=== PATIENT | female | born 1995 | race Caucasian/White ===

== ENCOUNTER 2016-05-03 15:46 | Emergency (ER) | payer BC, OTHER ==
[2016-05-03 15:50] VITALS: BP 127/73; PULSE 86; TEMP 98; BMI 20.9
--- NOTE | 2016-05-03 16:12 | PDOC ---
History of Present Illness - General Chief Complaint: Rash Stated Complaint: shingles Time Seen by Provider: 05/03/16 15:54 - History of Present Illness Initial Comments: 05/03/16 16:05 CHIEF COMPLAINT: shingles rash HISTORY OF PRESENT ILLNESS: 20 yo F with hx of shingles presents to ED with "shingles rash" to R abdomen. Patient reports having the same type of rash last time and was treated with Valacyclovir. She states that the rash is starting to be itchy and painful. She reports currently being but is getting a termination in 4 days. She denies fever, chills, nausea, vomiting, diarrhea, or rash to any other part of her body. PAST MEDICAL HISTORY: as per HPI FAMILY HISTORY: Denies SOCIAL HISTORY:Denies tobacco, alcohol, illicit drug use. SURGICAL HISTORY: Denies ALLERGIES: No known drug allergies REVIEW OF SYSTEMS General/Constitutional: Denies fever or chills. Denies weakness, weight change. HEENT: Denies change in vision. Cardiovascular: Denies chest pain or shortness of breath. Respiratory: Denies cough, wheezing, or hemoptysis. Gastrointestinal: Denies nausea, vomiting, diarrhea or constipation. Denies rectal bleeding. Genitourinary: Denies dysuria, frequency, or change in urination. Skin and breasts: "I have a shingles rash." Denies rash or easy bruising. PHYSICAL EXAM General Appearance: Well-appearing, appropriately dressed. Respiratory/Chest: Lungs CTAB. Cardiovascular: RRR. S1, S2. Gastrointestinal/Abdominal: Normal bowel sounds. Abdomen soft, non-distended. No tenderness or rebound tenderness. No organomegaly, pulsatile mass, guarding , hernia, hepatomegaly, splenomegaly. Lymphatic: No adenopathy, tenderness. Integumentary: 4 cm x 4 cm erythematous papular rash to R abdomen. Appropriate color, dry, warm. No cyanosis, erythema, jaundice or rash Neurologic: telecom network manager II-XII intact. Fully oriented, alert. Appropriate mood/affect. Motor strength 5/5. No appreciable EOM palsy, facial droop or sensory deficit. Past History - Past Medical History Allergies/Adverse Reactions: Allergies Allergy/AdvReac Type Severity Reaction Status Date / Time No Known Allergies Allergy Verified 05/03/16 15:50 Home Medications: Ambulatory Orders Valacyclovir HCl [Valtrex] 1,000 mg PO TID #21 tablet 05/03/16 Other medical history: shingles - Immunization History Immunization Up to Date: Yes - Psycho/Social/Smoking Cessation Hx Anxiety: No Suicidal Ideation: No Smoking History: Never smoked Information on smoking cessation initiated: No Hx Alcohol Use: No Drug/Substance Use Hx: No Substance Use Type: None *Physical Exam - Vital Signs Last Vital Signs Temp Pulse Resp BP Pulse Ox 98 F 86 18 127/73 100 05/03/16 15:48 05/03/16 15:48 05/03/16 15:48 05/03/16 15:48 05/03/16 15:48 Medical Decision Making - Medical Decision Making 05/03/16 16:09 20 yo F with herpes zoster rash. -Valacyclovir 1g TID x 7 days Rx sent to pharm. Advised patient to take medication as prescribed and f/u with PMD. Advised patient of signs and symptoms for return to ED; patient verbalized understanding and agrees to plan. *DC/Admit/Observation/Transfer Diagnosis at time of Disposition: Shingles Qualifiers: Herpes zoster complications: without complications Qualified Code(s): B02.9 - Zoster without complications - Discharge Dispostion Disposition: HOME Condition at time of disposition: Stable - Prescriptions Prescriptions: Valacyclovir HCl [Valtrex] 1,000 mg PO TID #21 tablet - Referrals Referrals: Rani Martinez MD [Staff Physician] - - Patient Instructions Printed Discharge Instructions: DI for Shingles Additional Instructions: Please take medication as prescribed. Rest, keep area of rash cool and dry. Avoid strenuous activity or hot /humid environments Avoid hot showers or use no abrasive soaps You may use creams such as Eucerin or Cetaphil to keep skin moist, and use Aveeno, calamine lotion, [id number] hydrocortisone creams as needed for symptoms. Please follow up with your primary care doctor next week if symptoms do not resolve. Follow up with a client operations manager for further evaluation when possible.
== END 2016-05-03 17:02 | disposition home or self-care (01) ==
LOC: JERFT 15:46
DX: B02.9 Zoster without complications (principal)
CPT/HCPCS: 99281-25

== ENCOUNTER 2016-12-08 10:29 | Emergency (ER) | payer BC, OTHER ==
[2016-12-08 10:34] VITALS: BP 121/69; PULSE 84; TEMP 98; BMI 20.9
[2016-12-08] MEDS ORDERED: DEXAMETHASONE SOD PHOSPHATE 10 MG/1 ML VIAL IM ONE (10:56)
[2016-12-08] MEDS ORDERED: DEXAMETHASONE SOD PHOSPHATE 10 MG/1 ML VIAL ONE (10:57)
--- NOTE | 2016-12-08 12:35 | PDOC ---
History of Present Illness - General Chief Complaint: Rash Stated Complaint: RASH Time Seen by Provider: 12/08/16 10:48 History Source: Patient Exam Limitations: No Limitations - History of Present Illness Initial Comments: 12/08/16 10:53 Onset of very itchy rash one week ago. States started on her hips, resolves and then spreads to back. States is very difficult time sleeping secondary to the itchiness. Denies any recent exposure to other people with rashes, no new changes to detergents, soaps, lotions or any other environmental changes. Has no animals or any known infestations at home. No one else at home has rash. Has used hydrocortisone cream with minimal resolved 12/08/16 12:35 Timing/Duration: reports: changing over time, getting worse Severity: Yes: mild, moderate Location: reports: torso (only on back) Modifying Factors: improves with: scratching Associated Symptoms: reports: denies symptoms Past History - Travel Traveled outside of the country in the last 30 days: No Close contact w/someone who was outside of country & ill: No - Past Medical History Allergies/Adverse Reactions: Allergies Allergy/AdvReac Type Severity Reaction Status Date / Time No Known Allergies Allergy Verified 12/08/16 10:34 Home Medications: Ambulatory Orders NK [No Known Home Medication] 12/08/16 - Immunization History Immunization Up to Date: Yes - Psycho/Social/Smoking Cessation Hx Anxiety: No Suicidal Ideation: No Smoking History: Never smoked Information on smoking cessation initiated: No Hx Alcohol Use: No Drug/Substance Use Hx: No Substance Use Type: None Review of Systems - Review of Systems Able to Perform ROS?: Yes Is the patient limited Kyrgyz proficient: Yes Constitutional: Yes: See HPI. No: Symptoms Reported, Fever, Malaise HEENTM: Yes: See HPI. No: Symptoms Reported, Nose Congestion, Throat Swelling, Difficulty Swallowing Respiratory: Yes: See HPI. No: Symptoms reported, Cough, Wheezing Integumentary: Yes: Symptoms Reported, See HPI, Pruritus, Rash Neurological: No: Symptoms reported All Other Systems: Reviewed and Negative *Physical Exam - Vital Signs Last Vital Signs Temp Pulse Resp BP Pulse Ox 98 F 84 18 121/69 100 12/08/16 10:31 12/08/16 10:31 12/08/16 10:31 12/08/16 10:31 12/08/16 10:31 - Physical Exam General Appearance: Yes: Nourished, Appropriately Dressed, Mild Distress HEENT: positive: JANET, Normal ENT Inspection (no swelling, airway patent), TMs Normal, Pharynx Normal Neck: positive: Supple. negative: Tender, Lymphadenopathy (R), Lymphadenopathy (L) Respiratory/Chest: positive: Lungs Clear, Normal Breath Sounds Extremity: positive: Normal Capillary Refill, Normal Inspection Integumentary: positive: Normal Color, Dry, Rash (faint maculopapular discrete lesions on back with excoriation from scratching. No pattern, no grouping and no vesicular appearance. Only noted on back.) Neurologic: positive: line runner II-XII NML intact, Fully Oriented, Alert, Normal Mood/ Affect, Normal Response, Motor Strength 08/01 Progress Note - Progress Note Progress Note: Dermatitis, will treat with antihistamines and have follow-up with embossing machine operator as needed *DC/Admit/Observation/Transfer Diagnosis at time of Disposition: Rash of back - Discharge Dispostion Disposition: HOME Condition at time of disposition: Stable Admit: No - Referrals Referrals: Bhumi Georges MD [Primary Care Provider] - Juan Flores [Non Staff, Medical] - - Patient Instructions Printed Discharge Instructions: DI for Rash Additional Instructions: Rest, keep cool and dry- avoid strenuous activity or hot /humid environments Less hot showers, no abrasive soaps May use heavy creams like Eucerin or Cetaphil to keep skin moist May apply Aveeno, calamine lotion, fexj-pyx-ercedst hydrocortisone creams as needed for symptoms May use Benadryl at night for antihistamine, Zyrtec/ Sara or Claritin for daytime antihistamine use to help with itching May use oldw-xms-icafgtm hydrocortisone cream on all areas except face Try to identify cause for rash and avoid exposures Followup with PMD in one week if no resolution Make appointment with embossing machine operator for evaluation when possible
== END 2016-12-08 11:13 | disposition home or self-care (01) ==
LOC: JERFT 10:29
PROC: 3E0233Z Introduction of Anti-inflammatory into Muscle, Percutaneous Approach (ICD-10-PCS; principal; 2016-12-08)
DX: R21 Rash and other nonspecific skin eruption (principal)
CPT/HCPCS: 96372; 99281-25

== ENCOUNTER 2017-08-03 19:40 | Emergency (ER) | payer OTHER ==
[2017-08-03 19:55] VITALS: BP 143/81; PULSE 98; TEMP 98.4; BMI 21.4
--- NOTE | 2017-08-03 19:55 | PDOC ---
Rapid Medical Evaluation Time Seen by Provider: 08/03/17 19:52 Medical Evaluation: Allergies Allergy/AdvReac Type Severity Reaction Status Date / Time No Known Allergies Allergy Verified 12/08/16 10:34 I have performed a brief in-person evaluation of this patient. The patient presents with a chief complaint of: right ear pain, nasal congestion, PETERS, sore throat since this morning. no fever. has not taken any OTC meds Pertinent physical exam findings: patient appears well. no tonsilar swelling or exudate I have ordered the following: hcg The patient will proceed to the ED for further evaluation.
--- NOTE | 2017-08-03 21:31 | PDOC ---
History of Present Illness - General Chief Complaint: Cold Symptoms Stated Complaint: COLD SYMTOMS Time Seen by Provider: 08/03/17 19:52 - History of Present Illness Initial Comments: 21-year-old female presents for evaluation of sinus congestion and right ear pain 3 days. She denies fever chills or night sweats nose nausea vomiting or diarrhea 08/03/17 21:26 Past History - Past Medical History Allergies/Adverse Reactions: Allergies Allergy/AdvReac Type Severity Reaction Status Date / Time No Known Allergies Allergy Verified 08/03/17 19:53 Home Medications: Ambulatory Orders Cetirizine HCl/Pseudoephedrine [Zyrtec-D Tablet] 1 each PO DAILY 30 Days #30 tab.er.12h 08/03/17 COPD: No - Immunization History Immunization Up to Date: Yes - Suicide/Smoking/Psychosocial Hx Smoking History: Never smoked Hx Alcohol Use: No Drug/Substance Use Hx: No Substance Use Type: None Review of Systems - Review of Systems Able to Perform ROS?: Yes Is the patient limited Czech proficient: No Constitutional: Yes: See HPI, Malaise. No: Chills, Diaphoresis, Fever, Night Sweats HEENTM: Yes: Ear Pain, Nose Congestion. No: Eye Pain, Ear Discharge, Nose Pain , Nose Bleeding, Hearing Loss, Throat Pain, Throat Swelling, Mouth Pain Respiratory: No: Cough, Shortness of Breath, SOB at Rest, Stridor, Wheezing Cardiac (ROS): No: Chest Pain ABD/GI: No: Constipated, Diarrhea, Nausea, Vomiting All Other Systems: Reviewed and Negative *Physical Exam - Vital Signs Last Vital Signs Temp Pulse Resp BP Pulse Ox 98.4 F 98 H 18 143/81 98 08/03/17 19:53 08/03/17 19:53 08/03/17 19:53 08/03/17 19:53 08/03/17 19:53 - Physical Exam Comments: 08/03/17 21:27 General Appearance: Well-developed, well-nourished A&O 3 NAD Head: NC/AT Ears: External auditory canals are normal and clear; tympanic membranes are normal; hearing is grossly intact Nose: Normal no discharge Throat and Oral cavity: Pharynx is clear without inflammation swelling exudate no lesions teeth and gingiva are normal Neck: Supple nontender without lymphadenopathy masses or thyromegaly Cardiac: S1 and S2 without murmurs no peripheral edema cyanosis or pallor; extremities are warm and well-perfused; capillary refill is less than 2 seconds without carotid bruits Lungs: CTA and Percussion no rales or rhonchi or wheezing breath sounds are full bilaterally Abdomen: Positive bowel sounds; soft nondistended, nontender, no guarding or rebound tenderness; no masses Musculoskeletal; Adequately aligned spine range of motion intact to spine and extremities Neurologic: Cranial nerves II-XII are grossly intact strength and sensation are symmetric and intact cerebellar testing is negative Skin: Normal color and temperature normal texture turgor no lesions or eruptions *DC/Admit/Observation/Transfer Diagnosis at time of Disposition: Seasonal allergic reaction - Discharge Dispostion Condition at time of disposition: Stable Admit: No - Referrals Referrals: Stella Jade MD [Primary Care Provider] - - Patient Instructions Printed Discharge Instructions: Allergic Rhinitis, Allergies, Respiratory ( Alternative Therapy) - Post Discharge Activity Forms/Work/School Notes: Back to Work
== END 2017-08-03 21:36 | disposition home or self-care (01) ==
LOC: JERFT 19:40
DX: J30.2 Other seasonal allergic rhinitis (principal)
CPT/HCPCS: 84703; 99281-25

== ENCOUNTER 2018-04-05 15:14 | Emergency (ER) | payer BC, OTHER ==
[2018-04-05] MEDS ORDERED: ACETAMINOPHEN 500 MG TABLET (FP) PO ONE (15:26)
--- NOTE | 2018-04-05 15:26 | PDOC ---
Rapid Medical Evaluation Time Seen by Provider: 04/05/18 15:24 Medical Evaluation: Allergies Allergy/AdvReac Type Severity Reaction Status Date / Time No Known Allergies Allergy Verified 08/03/17 19:53 04/05/18 15:25 I have done a brief in-person assessment of this patient. The patient presents with a chief complaint of headache x 2 days. Patient reports frontal headache x 2 days. Denies dizziness, blurred vision, or nausea Pertinent physical exam findings Nad even and unlabored breathing neuro: moving all limbs, a+ o x 3 I have ordered the following: urine preg, analgesia The patient will proceed to the Ed for further evaluation.
[2018-04-05 15:30] VITALS: BP 124/78; PULSE 74; TEMP 97.8; BMI 24.2
[2018-04-05] MEDS ORDERED: ACETAMINOPHEN 500 MG TABLET (FP) ONE (15:51)
--- NOTE | 2018-04-05 16:07 | PDOC ---
History of Present Illness - General Chief Complaint: Migraine Headache Stated Complaint: HEADACHE Time Seen by Provider: 04/05/18 15:24 History Source: Patient Exam Limitations: Clinical Condition - History of Present Illness Initial Comments: 04/05/18 16:08 Patient with history of migraines present with complaint of three-day history of nasal congestion and frontal headache which has not been improving with Tylenol. Patient denies dizziness, blurry vision, change in vision. Patient denies head trauma or injury. Patient denies nausea or vomiting or fever. Patient denies any other symptoms. Timing/Duration: reports: episodic (for 3 days) Severity: Yes: mild Associated Symptoms: reports: denies symptoms. denies: confusion, fatigue, insomnia, loss of consciousness, nausea/vomiting, ringing in ears, sleepy, slurred speech, vision changes, weakness Past History - Past Medical History Allergies/Adverse Reactions: Allergies Allergy/AdvReac Type Severity Reaction Status Date / Time No Known Allergies Allergy Verified 04/05/18 15:37 Home Medications: Ambulatory Orders Butalb/Acetaminophen/Caffeine [Fioricet 50-300-40 mg Capsule] 1 each PO Q6H PRN #20 capsule 04/05/18 Ipratropium [place] 2 spray NS BID PRN #1 spray 04/05/18 Loratadine 10 mg PO DAILY #10 capsule 04/05/18 Anemia: No Asthma: No Cardiac Disorders: No CVA: No COPD: No HTN: No Hypercholesterolemia: No Seizures: No - Immunization History Immunization Up to Date: Yes - Suicide/Smoking/Psychosocial Hx Smoking History: Never smoked Have you smoked in the past 12 months: No Information on smoking cessation initiated: No Hx Alcohol Use: No Drug/Substance Use Hx: No Substance Use Type: None Neuro Specific PMHX - Complaint Specific PMHX Glaucoma: No Herniated Disk: No Laminectomy: No Migraine: Yes Neuropathy: No TIA: No Review of Systems - Review of Systems Able to Perform ROS?: Yes Is the patient limited Iraqi proficient: No Constitutional: No: Chills, Fever, Malaise, Weakness HEENTM: Yes: Symptoms Reported, See HPI, Nose Congestion. No: Eye Pain, Blurred Vision, Tearing, Recent change in vision, Double Vision, Cataracts, Ear Pain, Ocular Prothesis, Ear Discharge, Nose Pain, Tinnitus, Nose Bleeding, Hearing Loss, Throat Pain, Throat Swelling, Mouth Pain, Dental Problems, Difficulty Swallowing, Mouth Swelling, Other Respiratory: No: Symptoms reported, See HPI, Cough, Orthopnea, Shortness of Breath, SOB with Exertion, SOB at Rest, Stridor, Wheezing, Productive cough, Hemoptysis, Other Cardiac (ROS): No: Symptoms Reported, See HPI, Chest Pain, Edema, Irregular Heart Rate, Lightheadedness, Palpitations, Syncope, Chest Tightness, Other ABD/GI: No: Nausea, Vomiting Neurological: Yes: Headache (intermittent frontal of head). No: Numbness, Paresthesia, Pre-Existing Deficit, Seizure, Tingling, Tremors, Unsteady Gait, Ataxia, Dizziness All Other Systems: Reviewed and Negative *Physical Exam - Vital Signs Last Vital Signs Temp Pulse Resp BP Pulse Ox 97.8 F 74 20 124/78 100 04/05/18 15:26 04/05/18 15:26 04/05/18 15:26 04/05/18 15:26 04/05/18 15:26 - Physical Exam Comments: 04/05/18 16:10 GENERAL: Well developed, well nourished. Awake and alert. No acute distress. HEENT: mild b/l nasal congestion.Normocephalic, atraumatic. PERRLA, EOMI. No conjunctival pallor. Sclera are non-icteric. Moist mucous membranes. Oropharynx is clear. NECK: Supple. Full ROM. No JVD. Carotid pulses 2+ and symmetric, without bruits. No thyromegaly. No lymphadenopathy. CARDIOVASCULAR: Regular rate and rhythm. No murmurs, rubs, or gallops. Distal pulses are 2+ and symmetric. PULMONARY: No evidence of respiratory distress. Lungs clear to auscultation bilaterally. No wheezing, rales or rhonchi. ABDOMINAL: Soft. Non-tender. Non-distended. No rebound or guarding. No organomegaly. Normoactive bowel sounds. MUSCULOSKELETAL Normal range of motion at all joints. No bony deformities or tenderness. No CVA tenderness. EXTREMITIES: No cyanosis. No clubbing. No edema. No calf tenderness. SKIN: Warm and dry. Normal capillary refill. No rashes. No jaundice. NEUROLOGICAL: Alert, awake, appropriate. Cranial nerves 2-12 intact. normal tandem walking. Normal speech. Toes are down-going bilaterally. Gait is normal without ataxia. PSYCHIATRIC: Cooperative. Good eye contact. Appropriate mood and affect. General Appearance: Yes: Nourished, Appropriately Dressed. No: Apparent Distress Moderate Sedation - Procedure Monitoring Vital Signs: Procedure Monitoring Vital Signs Temperature 97.8 F 04/05/18 15:26 Pulse Rate 74 04/05/18 15:26 Respiratory Rate 20 04/05/18 15:26 Blood Pressure 124/78 04/05/18 15:26 O2 Sat by Pulse Oximetry (%) 100 04/05/18 15:26 ED Treatment Course - Medications Given in the ED: ED Medications Discontinued Medications Generic Name Dose Route Start Last Admin Trade Name Freq PRN Reason Stop Dose Admin Acetaminophen 1,000 mg 04/05/18 15:26 04/05/18 15:53 Tylenol - PO 04/05/18 15:27 1,000 mg ONCE ONE Administration Medical Decision Making - Medical Decision Making 04/05/18 16:10 Patient with history of migraines present with complaint of three-day history of nasal congestion and frontal headache which has not been improving with Tylenol Clinical exam unremarkable except nasal congestion. Normal neuro exam. Symptoms likely headache from sinusitis. Patient is stable for discharge on outpatient treatment for sinusitis with neurology follow-up as needed for headache and ENT follow-up for sinusitis as needed. *DC/Admit/Observation/Transfer Diagnosis at time of Disposition: Headache Qualifiers: Headache type: unspecified Headache chronicity pattern: chronic headache Intractability: not intractable Qualified Code(s): R51 - Headache Sinusitis Qualifiers: Sinusitis location: frontal Chronicity: acute Recurrence: non-recurrent Qualified Code(s): J01.10 - Acute frontal sinusitis, unspecified - Discharge Dispostion Disposition: HOME Condition at time of disposition: Stable Decision to Admit order: No - Prescriptions Prescriptions: Butalb/Acetaminophen/Caffeine [Fioricet 50-300-40 mg Capsule] 1 each PO Q6H PRN #20 capsule PRN Reason: headache Ipratropium [place] 2 spray NS BID PRN #1 spray PRN Reason: nasal congestion Loratadine 10 mg PO DAILY #10 capsule - Referrals Referrals: Jose Lang MD [Staff Physician] - Donaldo Cuenca MD [Staff Physician] - - Patient Instructions Printed Discharge Instructions: Migraine Headaches (Alternative Therapy) Additional Instructions: Take medication as prescribed. Follow-up referred neurology if headaches persist more than 5 days. - Post Discharge Activity Forms/Work/School Notes: Back to Work
== END 2018-04-05 16:10 | disposition home or self-care (01) ==
LOC: JERFT 15:14
DX: J01.10 Acute frontal sinusitis, unspecified (principal); R51 Headache
CPT/HCPCS: 84703; 99281-25

== ENCOUNTER 2018-04-26 20:25 | Emergency (ER) | payer BC ==
[2018-04-26 20:28] VITALS: BP 139/89; PULSE 90; TEMP 98.4; BMI 21.2
--- NOTE | 2018-04-26 21:28 | PDOC ---
History of Present Illness - General Chief Complaint: Cold Symptoms Stated Complaint: SORE THROAT,HEADACHES Time Seen by Provider: 04/26/18 21:16 - History of Present Illness Initial Comments: 04/26/18 21:23 22-year-old female presents for evaluation of nasal congestion fever chills and body aches x 1 d Past History - Past Medical History Allergies/Adverse Reactions: Allergies Allergy/AdvReac Type Severity Reaction Status Date / Time No Known Allergies Allergy Verified 04/26/18 20:28 Home Medications: Ambulatory Orders Butalb/Acetaminophen/Caffeine [Fioricet 50-300-40 mg Capsule] 1 each PO Q6H PRN #20 capsule 04/05/18 Ipratropium [place] 2 spray NS BID PRN #1 spray 04/05/18 Loratadine 10 mg PO DAILY #10 capsule 04/05/18 Anemia: No Asthma: No Cardiac Disorders: No CVA: No COPD: No HTN: No Hypercholesterolemia: No Seizures: No - Immunization History Immunization Up to Date: Yes - Suicide/Smoking/Psychosocial Hx Smoking History: Never smoked Have you smoked in the past 12 months: No Information on smoking cessation initiated: No Hx Alcohol Use: No Drug/Substance Use Hx: No Substance Use Type: None Review of Systems - Review of Systems Constitutional: Yes: Diaphoresis, Fever, Malaise, Night Sweats, Weakness HEENTM: Yes: Nose Congestion *Physical Exam - Vital Signs Last Vital Signs Temp Pulse Resp BP Pulse Ox 98.4 F 90 16 139/89 100 04/26/18 20:26 04/26/18 20:26 04/26/18 20:26 04/26/18 20:26 04/26/18 20:26 - Physical Exam Comments: 04/26/18 21:25 HEAD: NC/AT EYES: Conjuntiva clear Ears: Canals and TM's normal NOSE: No d/c THROAT: Moist mucous membrances, oral pharanx clear, uvula midline NECK: Supple without adenopathy CARDIAC: S1 S2 LUNGS: CTA Full and Equal breath sounds ABDOMEN: Soft NT ND MS: Full ROM in all joints without edema NEUROLOGIC: No gross sensory or motor deficits, NVID SKIN: Normal color and temperature no lesions or rashes Moderate Sedation - Procedure Monitoring Vital Signs: Procedure Monitoring Vital Signs Temperature 98.4 F 04/26/18 20:26 Pulse Rate 90 04/26/18 20:26 Respiratory Rate 16 04/26/18 20:26 Blood Pressure 139/89 04/26/18 20:26 O2 Sat by Pulse Oximetry (%) 100 04/26/18 20:26 *DC/Admit/Observation/Transfer Diagnosis at time of Disposition: Viral URI with cough - Discharge Dispostion Disposition: HOME Condition at time of disposition: Stable Decision to Admit order: No - Referrals Referrals: Siddharth Lopez [Non Staff, Medical] - - Patient Instructions Printed Discharge Instructions: DI for Viral Upper Respiratory Infection -- Adult Additional Instructions: Your flu swab today was negative. Return to the emergency room should symptoms worsen or go unresolved. Please follow-up with internal medicine one to 2 days for further evaluation and treatment options. Tylenol as directed for pain and fever. - Post Discharge Activity
== END 2018-04-26 21:53 | disposition home or self-care (01) ==
LOC: JERFT 20:25
DX: J06.9 Acute upper respiratory infection, unspecified (principal); B97.89 Other viral agents as the cause of diseases classified elsewhere
CPT/HCPCS: 87804; 99281-25

== ENCOUNTER 2018-06-20 09:03 | Emergency (ER) | payer BC ==
[2018-06-20 09:06] VITALS: BP 118/76; PULSE 89; TEMP 98.5; BMI 21.6
--- NOTE | 2018-06-20 10:16 | PDOC ---
History of Present Illness - General Chief Complaint: Respiratory Stated Complaint: COLD SYMPTOMS Time Seen by Provider: 06/20/18 09:42 History Source: Patient Exam Limitations: No Limitations Past History - Past Medical History Allergies/Adverse Reactions: Allergies Allergy/AdvReac Type Severity Reaction Status Date / Time No Known Allergies Allergy Verified 06/20/18 09:05 Home Medications: Ambulatory Orders Mag Hydrox/Alh/Smc/Dpha/Lido [Magic Mouthwash *Sjr Formula* -] 5 ml MM Q6HPO #4 mouthwash 06/20/18 Anemia: No Asthma: No Cardiac Disorders: No CVA: No COPD: No HTN: No Hypercholesterolemia: No Seizures: No - Immunization History Immunization Up to Date: Yes - Suicide/Smoking/Psychosocial Hx Smoking History: Never smoked Have you smoked in the past 12 months: No Hx Alcohol Use: No Drug/Substance Use Hx: No Substance Use Type: None *Physical Exam - Vital Signs Last Vital Signs Temp Pulse Resp BP Pulse Ox 98.5 F 89 18 118/76 100 06/20/18 09:03 06/20/18 09:03 06/20/18 09:03 06/20/18 09:03 06/20/18 09:03 - Physical Exam General Appearance: No: Apparent Distress HEENT: positive: TMs Normal, Other (isolated white ulcer along R posterior pharynx). negative: Muffled/Hoarse voice, Pharyngeal Erythema, Tonsillar Exudate, Tonsillar Erythema Respiratory/Chest: positive: Lungs Clear, Normal Breath Sounds. negative: Respiratory Distress Cardiovascular: positive: Regular Rhythm, Regular Rate, S1, S2. negative: Murmur Gastrointestinal/Abdominal: positive: Normal Bowel Sounds, Soft. negative: Tender, Distended, Guarding, Rebound Integumentary: positive: Normal Color Neurologic: positive: Alert, Normal Mood/Affect Moderate Sedation - Procedure Monitoring Vital Signs: Procedure Monitoring Vital Signs Temperature 98.5 F 06/20/18 09:03 Pulse Rate 89 06/20/18 09:03 Respiratory Rate 18 06/20/18 09:03 Blood Pressure 118/76 06/20/18 09:03 O2 Sat by Pulse Oximetry (%) 100 06/20/18 09:03 Medical Decision Making - Medical Decision Making 22 y/o F with no sig pmh presents with sore throat, throat pain and PETERS x 4 days along with mild dry cough, rhinorrhea and congestion. Denies fever, sob, cp, abd pain, n/v/d. 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 PE - possible herpangina? Will treat with magic mouthwash stable for dc 06/20/18 10:12 *DC/Admit/Observation/Transfer Diagnosis at time of Disposition: Herpangina - Discharge Dispostion Disposition: HOME Condition at time of disposition: Stable Decision to Admit order: No - Prescriptions Prescriptions: Mag Hydrox/Alh/Smc/Dpha/Lido [Magic Mouthwash *Sjr Formula* -] 5 ml MM Q6HPO #4 mouthwash - Referrals - Patient Instructions Additional Instructions: Thank you for choosing [facility]. It was a pleasure taking care of you. Likely you have a mouth blister, commonly caused by a virus (Coxsackie virus) This can spread by cough Can take Motrin as needed for pain Drink cool liquids to also help You were prescribed Magic mouthwash to help as well Follow up with your doctor in 2-3 days Return to the Emergency Department if your symptoms worsen or persist or have other concerning symptoms. - Post Discharge Activity
== END 2018-06-20 10:25 | disposition home or self-care (01) ==
LOC: JERFT 09:03
DX: B08.5 Enteroviral vesicular pharyngitis (principal)
CPT/HCPCS: 99281-25

== ENCOUNTER 2018-09-14 22:48 | Emergency (ER) | payer BC | END 2018-09-15 00:55 | disposition home or self-care (01) | LOC: JER 09-15 00:55 | DX: J02.9 Acute pharyngitis, unspecified (principal) ==

== ENCOUNTER 2019-01-31 15:11 | Emergency (ER) | payer BC ==
[2019-01-31] MEDS ORDERED: ACETAMINOPHEN 1000 MG/100 ML VIAL (NON FORMULARY) IVPB ONE (15:19)
--- NOTE | 2019-01-31 15:19 | PDOC ---
Rapid Medical Evaluation Time Seen by Provider: 01/31/19 15:12 Medical Evaluation: Allergies Allergy/AdvReac Type Severity Reaction Status Date / Time No Known Allergies Allergy Verified 09/14/18 22:54 01/31/19 15:17 CC: RUQ pain- 17wks PE: gravid abdomen Orders: urine, labs, RUQ sono Patient will proceed to ED for further evaluation. Discharge Disposition - Diagnosis Abdominal pain - Referrals - Patient Instructions - Post Discharge Activity
[2019-01-31 15:20] VITALS: BP 120/68; PULSE 98; TEMP 98.5; BMI 22.3
--- NOTE | 2019-01-31 15:30 | PDOC ---
History of Present Illness - General Chief Complaint: Pain Stated Complaint: ABD PAIN Time Seen by Provider: 01/31/19 15:12 History Source: Patient Exam Limitations: No Limitations - History of Present Illness Initial Comments: 23 year old female with no PMH [id number] 17 weeks presented to ED for RUQ pain since 1200 today. 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 Pt denied nausea, vomiting, diarrhea, constipation, blood in stool, dysuria, vaginal bleeding, vaginal discharge. Past History - Past Medical History Allergies/Adverse Reactions: Allergies Allergy/AdvReac Type Severity Reaction Status Date / Time No Known Allergies Allergy Verified 01/31/19 15:18 Home Medications: Ambulatory Orders NK [No Known Home Medication] 01/31/19 Seizures: No - Immunization History Immunization Up to Date: Yes - Psycho Social/Smoking Cessation Hx Smoking History: Never smoked Have you smoked in the past 12 months: No Hx Alcohol Use: No Drug/Substance Use Hx: No Substance Use Type: None Review of Systems - Review of Systems Able to Perform ROS?: Yes Comments:: ROS General: denied fever, chills, generalized weakness. HEENT: denied sore throat, rhinorrhea, ear pain. Cardiovascular: denied chest pain, palpitations, syncope, diaphoresis. Respiratory: denied shortness of breath, cough, sputum production, hemoptysis. Gastrointestinal: admitted to abdominal pain. denied nausea, vomiting, diarrhea , constipation, blood in stool. Genitourinary: denied dysuria, increased urinary frequency, hematuria, urinary incontinence, flank pain. Back: denied back pain. Musculoskeletal: denied joint pain, muscle pain, joint swelling. Neurological: denied headache, dizziness, numbness, tingling, weakness. Integumentary: denied rash, laceration, abrasion. Hematologic/Lymphatic: denied bruising or bleeding. PE Constitutional: Well-nourished, Well-developed, appearing stated age. HEENT: head is normocephalic, atraumatic. EOMI. PERRLA. Neck: supple. Full ROM. Cardiovascular: regular heart rhythm. no murmurs. no pericardial friction rub. Respiratory: clear to auscultation bilaterally. no crackles, rhonchi or wheezing. no stridor. Gastrointestinal: soft, nontender, gravid. murphys negative. mcburney nontender. normal bowel sounds. no rebound, guarding, masses. Extremities: peripheral pulses intact. no lower extremity edema. Neurological: CN 2-12 grossly intact. moves all four extremities. Psych: awake, alert, oriented x3. follows commands. answers questions appropriately. Pelvic: deferred. *Physical Exam - Vital Signs Last Vital Signs Temp Pulse Resp BP Pulse Ox 98.5 F 98 H 17 120/68 100 01/31/19 15:18 01/31/19 15:18 01/31/19 15:18 01/31/19 15:18 01/31/19 15:18 ED Treatment Course - LABORATORY CBC & Chemistry Diagram: 01/31/19 15:33 01/31/19 15:33 Medical Decision Making - Medical Decision Making 23 year old female 17 weeks presented to ED for RUQ pain. Initial Vital Signs Temp Pulse Resp BP Pulse Ox 98.5 F 98 H 17 120/68 100 01/31/19 15:18 01/31/19 15:18 01/31/19 15:18 01/31/19 15:18 01/31/19 15:18 Afebrile. No tachycardia. No tachypnea. No hypotension. No hypoxia on room air. Labs ordered: CBC, CMP, lipase, beta-quant, UA/UC Imaging ordered: RUQ US, Pelvic US Medications ordered: Tylenol 01/31/19 15:48 Urine Test Results Urine Color Yellow 01/31/19 15:33 Urine Appearance Clear 01/31/19 15:33 Urine pH 7.0 (5.0-8.0) 01/31/19 15:33 Ur Specific Blakely 1.020 (1.010-1.035) 01/31/19 15:33 Urine Protein Negative (NEGATIVE) 01/31/19 15:33 Urine Glucose (UA) Negative (NEGATIVE) 01/31/19 15:33 Urine Ketones Negative (NEGATIVE) 01/31/19 15:33 Urine Blood Negative (NEGATIVE) 01/31/19 15:33 Urine Nitrite Negative (NEGATIVE) 01/31/19 15:33 Urine Bilirubin Negative (NEGATIVE) 01/31/19 15:33 Ur Leukocyte Esterase Negative (NEGATIVE) 01/31/19 15:33 Negative for UTI. Negative for proteinuria. Negative for hematuria. CBC WBC 7.9 K/mm3 (4.0-10.0) 01/31/19 15:33 RBC 3.38 M/mm3 (3.60-5.2) L 01/31/19 15:33 Hgb 10.4 GM/dL (10.7-15.3) L 01/31/19 15:33 Hct 30.4 % (32.4-45.2) L 01/31/19 15:33 MCV 90.0 fl (80-96) 01/31/19 15:33 MCH 30.7 pg (25.7-33.7) 01/31/19 15:33 MCHC 34.1 g/dl (32.0-36.0) 01/31/19 15:33 RDW 14.0 % (11.6-15.6) 01/31/19 15:33 Plt Count 249 K/MM3 (134-434) 01/31/19 15:33 MPV 7.4 fl (7.5-11.1) L 01/31/19 15:33 Absolute Neuts (auto) 5.6 K/mm3 (1.5-8.0) 01/31/19 15:33 Neutrophils % 70.2 % (42.8-82.8) 01/31/19 15:33 Lymphocytes % 16.4 % (8-40) 01/31/19 15:33 Monocytes % 11.8 % (3.8-10.2) H 01/31/19 15:33 Eosinophils % 1.3 % (0-4.5) 01/31/19 15:33 Basophils % 0.3 % (0-2.0) 01/31/19 15:33 Nucleated RBC % 0 % (0-0) 01/31/19 15:33 Normocytic anemia. -No prior to compare -Pt reported she is aware of anemia, taking iron supplements. No leukocytosis. 01/31/19 16:34 RUQ US report: Name: [facility] JORGENS[facility] DEPARTMENT OF RADIOLOGY Phys: Radha Teague RESIDENT : 1995 Age: 23 Sex: F [facility] Acct: [id number] Loc: [address] Exam Date: 01/31/19 Status: JESSICA Hair [id number] Unit Number: [id number] EXAM#: TYPE/EXAM: RESULT: [id number] US/ABDOMEN US -LIMITED Right upper quadrant abdomen ultrasound CLINICAL INFORMATION: right upper quadrant pain, 17 weeks No biliary calculus is seen. The gallbladder demonstrates no discrete abnormality. No pericholecystic fluid is noted. The common bile duct diameter appears unremarkable measuring 0.4 cm. The liver, right kidney and partially visualized pancreas demonstrate no sonographic pathology. No free intraperitoneal fluid is noted. IMPRESSION: Negative exam. No definite sonographic abnormality is noted as discussed above. Reported By: Eulalio Cleaning MD 01/31/19 1629 01/31/19 16:47 CMP Sodium 138 mmol/L (136-145) 01/31/19 15:33 Potassium 3.8 mmol/L (3.5-5.1) 01/31/19 15:33 Chloride 108 mmol/L (98-107) H 01/31/19 15:33 Carbon Dioxide 24 mmol/L (21-32) 01/31/19 15:33 Anion Gap 6 MMOL/L (8-16) L 01/31/19 15:33 BUN 5.5 mg/dL (7-18) L 01/31/19 15:33 Creatinine 0.5 mg/dL (0.55-1.3) L 01/31/19 15:33 Est GFR (CKD-EPI)AfAm 155.90 01/31/19 15:33 Est GFR (CKD-EPI)NonAf 134.52 01/31/19 15:33 Random Glucose 92 mg/dL (74-106) 01/31/19 15:33 Calcium 8.6 mg/dL (8.5-10.1) 01/31/19 15:33 Total Bilirubin 0.4 mg/dL (0.2-1) 01/31/19 15:33 AST 20 U/L (15-37) 01/31/19 15:33 ALT 19 U/L (13-61) 01/31/19 15:33 Alkaline Phosphatase 49 U/L (45-117) 01/31/19 15:33 Total Protein 7.0 g/dl (6.4-8.2) 01/31/19 15:33 Albumin 3.4 g/dl (3.4-5.0) 01/31/19 15:33 Lipase 111 U/L (73-393) 01/31/19 15:33 Beta HCG, Quant 41385.9 mIU/ml 01/31/19 15:33 No clinically significant electrolyte abnormalities. No BONITA. No transaminitis. Lipase wnl. 01/31/19 17:09 Pelvic US report: Name: SHEILA JORGENSEN DEPARTMENT OF RADIOLOGY Phys: Radha Teague RESIDENT : 1995 Age: 23 Sex: F [facility] Acct: [id number] Loc: [address] Exam Date: 01/31/19 Status: REG [place]ON [place] [id number] Unit Number: [id number] EXAM#: TYPE/EXAM: RESULT: [id number] US/ US(SINGLE) for evaluation Obstetrical ultrasound, transabdominal LMP: 10/04/2018 A single intra- HI fetus is present in cephalic presentation. Average sonographic gestational age is 17 weeks 3 days. Estimated weight is 181 g. heart rate is 171 bpm. There is no evidence of hydrocephalus. Fluid is present in the urinary bladder. Site of umbilical cord insertion appears unremarkable. The amount of amniotic fluid is within normal limits. Anterior placenta is posterior with hypoechoic densities that may represent venous lakes. Normal sagittal length of the uterine cervix measuring 4.4 cm without dilatation or funneling Impression: Single live intrauterine in cephalic presentation with average sonographic gestational age of 17 weeks 3 days. Heterogeneous of an anterior placenta with hypoechoic densities that may represent venous lakes. Follow-up is needed Reported By: Caterina Pablo MD 01/31/19 1707 01/31/19 17:15 Pt informed of results, given copy of US report. Pt informed to F/U with OBGYN. Pt given return precautions. Pt discharged. Discharge - Discharge Information Problems reviewed: Yes Clinical Impression/Diagnosis: Abdominal pain, Anemia affecting Condition: Stable Disposition: HOME - Admission No - Follow up/Referral - Patient Discharge Instructions Patient Printed Discharge Instructions: Anemia in Additional Instructions: Follow up with your OBGYN within 3 days. Your care is not complete until you follow up. Return to the Emergency Department for increasing pain, shortness of breath, chest pain, vomiting, fever, blood in vomit, blood in stool, dizziness, weakness or any other new, worsening or concerning symptoms. Take Tylenol over the counter for pain. Take as advised on label. Tylenol is safe to use in . Take your iron supplements as you have been instructed to do. - Post Discharge Activity Work/Back to School Note: Back to Work
[2019-01-31] MEDS ORDERED: ACETAMINOPHEN INJECTION 100 ML IVPB ONE (15:33)
[2019-01-31 15:44] LABS: BASO % 0.3 % (0-2.0); EOS % 1.3 % (0-4.5); HEMATOCRIT 30.4 % (32.4-45.2); HEMOGLOBIN 10.4 GM/dL (10.7-15.3); LYMPH % 16.4 % (8-40); MCH 30.7 pg (25.7-33.7); MCHC 34.1 g/dl (32.0-36.0); MEAN PLT VOLUME 7.4 fl (7.5-11.1); MONO % 11.8 % (3.8-10.2); NEUT % 70.2 % (42.8-82.8); PLATELET COUNT 249 K/MM3 (134-434); RBC 3.38 M/mm3 (3.60-5.2); WHITE BLOOD COUNT 7.9 K/mm3 (4.0-10.0)
[2019-01-31 15:47] LABS: URINE APPEARANCE CLEAR; URINE BILIRUBIN NEGATIVE (NEGATIVE); URINE COLOR YELLOW; URINE GLUCOSE (UA) NEGATIVE (NEGATIVE); URINE KETONE NEGATIVE (NEGATIVE); URINE LEUK ESTERASE NEGATIVE (NEGATIVE); URINE NITRITE NEGATIVE (NEGATIVE); URINE PROTEIN NEGATIVE (NEGATIVE)
[2019-01-31] MEDS ORDERED: ACETAMINOPHEN 325 MG TABLET (FP) PO ONE (16:14)
[2019-01-31 16:36] LABS: ALBUMIN 3.4 g/dl (3.4-5.0); BILIRUBIN,TOTAL 0.4 mg/dL (0.2-1); BLOOD UREA NITROGEN 5.5 mg/dL (7-18); CALCIUM 8.6 mg/dL (8.5-10.1); CREATININE 0.5 mg/dL (0.55-1.3); POTASSIUM 3.8 mmol/L (3.5-5.1)
[2019-01-31] MEDS ORDERED: ACETAMINOPHEN 325 MG TABLET (FP) ONE (16:36)
--- NOTE | 2019-01-31 16:57 | PDOC ---
Documentation entered by Guilherme Contreras SCRIBE, acting as scribe for Agnes Contreras MD. Agnes Contreras MD: This documentation has been prepared by the Ben champagne Daniel, SCRIBE, under my direction and personally reviewed by me in its entirety. I confirm that the documentation accurately reflects all work, treatment, procedures, and medical decision making performed by me. Attending Attestation - Resident Resident Name: Radha Teague - ED Attending Attestation I have performed the following: I have examined & evaluated the patient, The case was reviewed & discussed with the resident, I agree w/resident's findings & plan, Exceptions are as noted - HPI HPI: 01/31/19 16:54 The patient is a 23 year old female with no past medical history here today for evaluation of right upper quadrant abdominal pain. 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 Patient denies headache, lightheadedness. Denies fever, chills. Denies chest pain, shortness of breath. Denies nausea, vomiting, diarrhea, abdominal pain. Allergies: NKA - Physicial Exam PE: 01/31/19 17:[address] Teague's physcial exam - Medical Decision Making 01/31/19 17:15 Pelvic ultrasound shows a single live intrauterine of 17 weeks and 3 days UA is negative CBC is unremarkable Chemistries are unremarkable Gallbladder ultrasound does not show any evidence of acute cholecystitis Impression epigastric pain during Plan follow-up with [facility]
--- NOTE | 2019-02-01 11:27 | EKG ---
Test Reason : Blood Pressure : / mmHG Vent. Rate : 090 BPM Atrial Rate : 090 BPM P-R Int : 118 ms QRS Dur : 076 ms QT Int : 360 ms P-R-T Axes : 049 075 055 degrees QTc Int : 440 ms NORMAL SINUS RHYTHM NORMAL ECG NO PREVIOUS ECGS AVAILABLE Confirmed by Bobby Reis MD ([id number]) on 02/01/2019 11:26:20 AM Referred By: Confirmed By:Bobby Reis MD
== END 2019-01-31 17:21 | disposition home or self-care (01) ==
LOC: JER 15:11
PROC: 3E033NZ Introduction of Analgesics, Hypnotics, Sedatives into Peripheral Vein, Percutaneous Approach (ICD-10-PCS; principal; 2019-01-31)
DX: O26.892 Other specified pregnancy related conditions, second trimester (principal); R10.13 Epigastric pain; O99.012 Anemia complicating pregnancy, second trimester; Z3A.17 17 weeks gestation of pregnancy
CPT/HCPCS: 36415; 76705-TC; 76801-TC; 80053; 81003; 83690; 84702; 85025; 87086; 93005; 93010; 99283-25

== ENCOUNTER 2019-05-02 15:22 | Emergency (ER) | payer BC ==
[2019-05-02 15:40] VITALS: BP 119/69; PULSE 99; TEMP 98.3; BMI 25.4
--- NOTE | 2019-05-02 17:06 | PDOC ---
History of Present Illness - General Chief Complaint: Edema Stated Complaint: RT HAND NUMBER AND SWOLLEN Time Seen by Provider: 05/02/19 16:49 - History of Present Illness Initial Comments: 05/02/19 17:04 30-week female with right wrist numbness and tingling x1 week Past History - Past Medical History Allergies/Adverse Reactions: Allergies Allergy/AdvReac Type Severity Reaction Status Date / Time No Known Allergies Allergy Verified 05/02/19 15:40 Home Medications: Ambulatory Orders NK [No Known Home Medication] 01/31/19 Anemia: No Asthma: No Cardiac Disorders: No CVA: No COPD: No HTN: No Hypercholesterolemia: No Seizures: No - Reproductive History (#): 1 Para: 0 - Immunization History Immunization Up to Date: Yes - Psycho Social/Smoking Cessation Hx Smoking History: Never smoked Have you smoked in the past 12 months: No Information on smoking cessation initiated: No Hx Alcohol Use: No Drug/Substance Use Hx: No Substance Use Type: None Review of Systems - Review of Systems Neurological: Yes: See HPI *Physical Exam - Vital Signs Last Vital Signs Temp Pulse Resp BP Pulse Ox 98.3 F 99 H 17 119/69 99 05/02/19 15:36 05/02/19 15:36 05/02/19 15:36 05/02/19 15:36 05/02/19 15:36 - Physical Exam 05/02/19 17:04 Right wrist skin color and temperature normal range of motion is full. Positive median nerve compression and [place] sign neurovascular intact Medical Decision Making - Medical Decision Making 05/02/19 17:04 Very reproducible symptoms of carpal tunnel syndrome. Recommended Tylenol for any discomfort and pain sleeping in a cock-up wrist splint and following up with orthopedic surgery Discharge - Discharge Information Problems reviewed: Yes Clinical Impression/Diagnosis: Carpal tunnel syndrome Condition: Stable Disposition: HOME - Admission No - Follow up/Referral Referrals: Rossy Santiago MD [Primary Care Provider] - Austin Niño MD [Staff Physician] - - Patient Discharge Instructions Additional Instructions: Please sleep in a cock-up wrist splint with a rigid support. Tylenol as needed for pain. Return to the emergency room for worsening symptoms and without fail follow-up with orthopedic hand surgery in 2 to 3 days for further evaluation and treatment options. Do not take any anti-inflammatories or other medications besides Tylenol. - Post Discharge Activity
== END 2019-05-02 17:22 | disposition home or self-care (01) ==
LOC: JERFT 15:22 → JER 15:22 → JERFT 17:22
DX: O99.89 Other specified diseases and conditions complicating pregnancy, childbirth and the puerperium (principal); O99.353 Diseases of the nervous system complicating pregnancy, third trimester; G56.00 Carpal tunnel syndrome, unspecified upper limb; Z3A.30 30 weeks gestation of pregnancy
CPT/HCPCS: 99281-25

== ENCOUNTER 2020-05-10 18:21 | Emergency (ER) | payer BC, OTHER ==
[2020-05-10 18:30] VITALS: BP 131/91; PULSE 88; TEMP 98; BMI 22.1
[2020-05-10 19:42] LABS: EPI CELLS 16 /uL (0-25.1); HYALINE CASTS 1 /uL (0-3.1); PH,URINE 6.5 (5.0-8.0); URINE APPEARANCE CLEAR; URINE BACTERIA 26 /uL (0-1359); URINE BILIRUBIN NEGATIVE (NEGATIVE); URINE COLOR YELLOW; URINE GLUCOSE (UA) NEGATIVE (NEGATIVE); URINE KETONE NEGATIVE (NEGATIVE); URINE LEUK ESTERASE 2+ (NEGATIVE); URINE NITRITE NEGATIVE (NEGATIVE); URINE PROTEIN NEGATIVE (NEGATIVE); URINE RBC 4 /uL (0-23.9); URINE WBC 43 /uL (0-25.8)
[2020-05-10 19:45] LABS: HCG,QUALITATIVE URINE Negative
== END 2020-05-10 20:37 | disposition home or self-care (01) ==
LOC: JERFT 18:21 → JER 18:21 → JERFT 20:37
DX: N30.00 Acute cystitis without hematuria (principal)
CPT/HCPCS: 36415; 81003; 84703; 87086; 87491; 87591; 99283-25

== ENCOUNTER 2021-08-04 21:25 | Emergency (ER) | payer BC, OTHER ==
[2021-08-04 22:01] VITALS: BP 120/82; PULSE 88; TEMP 98.3; BMI 20.7
[2021-08-04] MEDS ORDERED: METOCLOPRAMIDE HCL 10 MG TABLET (FP) PO ONE ×2 (22:24→22:39)
[2021-08-04] MEDS ORDERED: ACETAMINOPHEN 325 MG TABLET (FP) PO ONE (22:24)
[2021-08-04] MEDS ORDERED: ACETAMINOPHEN 325 MG TABLET (FP) ONE (22:39)
[2021-08-04 23:04] LABS: URINE APPEARANCE CLEAR; URINE BILIRUBIN NEGATIVE (NEGATIVE); URINE COLOR YELLOW; URINE GLUCOSE (UA) NEGATIVE (NEGATIVE); URINE KETONE NEGATIVE (NEGATIVE); URINE LEUK ESTERASE NEGATIVE (NEGATIVE); URINE NITRITE NEGATIVE (NEGATIVE); URINE PROTEIN NEGATIVE (NEGATIVE)
[2021-08-04 23:07] LABS: HCG,QUALITATIVE URINE Negative
== END 2021-08-05 00:05 | disposition home or self-care (01) ==
LOC: JER 21:25
DX: R42 Dizziness and giddiness (principal); R11.2 Nausea with vomiting, unspecified
CPT/HCPCS: 81003; 84703; 87086; 99284-25

== ENCOUNTER 2021-12-07 01:13 | Emergency (ER) | payer BC ==
[2021-12-07 01:33] VITALS: BP 109/73; PULSE 85; RESP 18; TEMP 97.9; BMI 22.3
[2021-12-07] MEDS ORDERED: ACETAMINOPHEN INJECTION 100 ML IVPB ONE (02:53)
[2021-12-07 03:06] LABS: BASO % 0.5 % (0-2.0); HEMATOCRIT 34.4 % (32.4-45.2); HEMOGLOBIN 12.1 GM/dL (10.7-15.3); LYMPH % 18.3 % (8-40); MCH 30.9 pg (25.7-33.7); MCHC 35.1 g/dl (32.0-36.0); MEAN PLT VOLUME 7.9 fl (7.5-11.1); NEUT % 69.2 % (42.8-82.8); PLATELET COUNT 256 10^3/uL (134-434); RBC 3.91 M/mm3 (3.60-5.2); RDW 13.8 % (11.6-15.6)
[2021-12-07 03:25] LABS: ALBUMIN 4.1 g/dl (3.4-5.0); BLOOD UREA NITROGEN 9.7 mg/dL (7-18); CALCIUM 8.8 mg/dL (8.5-10.1)
[2021-12-07 03:28] LABS: CREATININE 0.7 mg/dL (0.55-1.3)
[2021-12-07 03:30] LABS: BILIRUBIN,TOTAL 0.7 mg/dL (0.2-1); TOT PROT 7.9 g/dl (6.4-8.2)
== END 2021-12-07 05:24 | disposition home or self-care (01) ==
LOC: JER 01:13
DX: O20.0 Threatened abortion (principal)
CPT/HCPCS: 36415; 76830-TC; 80053; 84702; 84703; 85025; 86850; 86900; 86901; 99284-25

== ENCOUNTER 2021-12-14 11:40 | Observation (INO) | payer BC ==
[2021-12-14 11:55] VITALS: BMI 23.6
[2021-12-14 12:52] LABS: BASO % 0.2 % (0-2.0); EOS % 0.1 % (0-4.5); HEMATOCRIT 32.9 % (32.4-45.2); HEMOGLOBIN 11.5 GM/dL (10.7-15.3); LYMPH % 3.9 % (8-40); MCH 30.7 pg (25.7-33.7); MCHC 34.9 g/dl (32.0-36.0); MEAN CELL VOLUME 88.1 fl (80-96); MEAN PLT VOLUME 7.5 fl (7.5-11.1); NEUT % 88.8 % (42.8-82.8); PLATELET COUNT 228 10^3/uL (134-434); RBC 3.73 M/mm3 (3.60-5.2); RDW 13.7 % (11.6-15.6); WHITE BLOOD COUNT 18.4 K/mm3 (4.0-10.0)
[2021-12-14 13:13] LABS: CHLORIDE 103 mmol/L (98-107); SODIUM 133 mmol/L (136-145)
[2021-12-14 13:15] LABS: ALBUMIN 3.6 g/dl (3.4-5.0); ANION GAP 7 MMOL/L (8-16); BLOOD UREA NITROGEN 9.7 mg/dL (7-18); CO2 24 mmol/L (21-32); GLUCOSE,RANDOM 87 mg/dL (74-106)
[2021-12-14 13:19] LABS: CREATININE 0.6 mg/dL (0.55-1.3); SGOT/AST 17 U/L (15-37); SGPT/ALT 18 U/L (13-61)
[2021-12-14 13:21] LABS: ALK PHOS 43 U/L (45-117); BILIRUBIN,TOTAL 0.7 mg/dL (0.2-1); TOT PROT 6.8 g/dl (6.4-8.2)
[2021-12-14 14:06] LABS: PH,URINE 7.5 (5.0-8.0); URINE APPEARANCE TURBID; URINE BILIRUBIN NEGATIVE (NEGATIVE); URINE COLOR YELLOW; URINE GLUCOSE (UA) NEGATIVE (NEGATIVE); URINE KETONE TRACE (NEGATIVE); URINE LEUK ESTERASE NEGATIVE (NEGATIVE); URINE NITRITE NEGATIVE (NEGATIVE); URINE PROTEIN NEGATIVE (NEGATIVE); URINE UROBILINOGEN 0.2 mg/dL (0.2-1.0)
[2021-12-14] MEDS ORDERED: ACETAMINOPHEN 325 MG TABLET (FP) PO ONE (14:26)
[2021-12-14] MEDS ORDERED: ACETAMINOPHEN 325 MG TABLET (FP) ONE (14:30)
[2021-12-14] MEDS ORDERED: SODIUM CHLORIDE 1,000 ML IV SCH (19:45)
[2021-12-15] MEDS: SODIUM CHLORIDE 1,000 ML IV SCH (07:26)
[2021-12-15 09:11] LABS: BASO % 0.2 % (0-2.0); EOS % 0.9 % (0-4.5); HEMATOCRIT 31.9 % (32.4-45.2); HEMOGLOBIN 10.8 GM/dL (10.7-15.3); LYMPH % 10.9 % (8-40); MCH 29.9 pg (25.7-33.7); MCHC 33.8 g/dl (32.0-36.0); MEAN CELL VOLUME 88.4 fl (80-96); MEAN PLT VOLUME 7.9 fl (7.5-11.1); MONO % 5.9 % (3.8-10.2); NEUT % 82.1 % (42.8-82.8); PLATELET COUNT 210 10^3/uL (134-434); RBC 3.61 M/mm3 (3.60-5.2); RDW 13.8 % (11.6-15.6); WHITE BLOOD COUNT 7.7 K/mm3 (4.0-10.0)
[2021-12-15 09:28] LABS: ALBUMIN 3.1 g/dl (3.4-5.0); BLOOD UREA NITROGEN 6.6 mg/dL (7-18); CALCIUM 7.9 mg/dL (8.5-10.1)
[2021-12-15 09:31] LABS: CREATININE 0.6 mg/dL (0.55-1.3)
[2021-12-15 09:32] LABS: BILIRUBIN,TOTAL 0.6 mg/dL (0.2-1)
[2021-12-15] MEDS: ACETAMINOPHEN 325 MG TABLET (FP) PO PRN ×2 (10:28→20:06)
[2021-12-15] MEDS: PRENATAL VITAMINS W/ FOLIC ACID TABLET (FP) PO SCH (10:31)
[2021-12-16 02:04] VITALS: RESP 18
[2021-12-16] MEDS: SODIUM CHLORIDE 1,000 ML IV SCH (07:10)
[2021-12-16] MEDS: PRENATAL VITAMINS W/ FOLIC ACID TABLET (FP) PO SCH (09:08)
[2021-12-16 14:53] VITALS: BP 111/60; PULSE 86; TEMP 98.2
== END 2021-12-16 15:31 | disposition home or self-care (01) ==
LOC: JER 11:40 → JERBED 15:05 → J4S 19:23
PROVIDERS: ADMIT Internal Medicine; ATTEND Internal Medicine
PROC: 3E0337Z Introduction of Electrolytic and Water Balance Substance into Peripheral Vein, Percutaneous Approach (ICD-10-PCS; principal; 2021-12-14)
DX: R55 Syncope and collapse (principal); O26.891 Other specified pregnancy related conditions, first trimester; Z3A.01 Less than 8 weeks gestation of pregnancy
CPT/HCPCS: 0241U-QW; 36415; 70450-TC; 76815; 80053; 81003; 82550; 82962; 83735; 84439; 84443; 84484; 84702; 85025; 87086; 93005; 93010; 93306-TC; 99285-25; G0378

== ENCOUNTER 2022-07-14 05:50 | Inpatient (IN) | payer BC ==
[2022-07-14] MEDS ORDERED: ELECTROLYTE-148 SOLN 500 ML IV ONE (06:51)
[2022-07-14] MEDS ORDERED: CITRIC ACID/SODIUM CITRATE 30 ML UNIT-DOSE CUP PO ONE (06:51)
[2022-07-14 06:58] VITALS: BMI 28.0
[2022-07-14] MEDS ORDERED: ELECTROLYTE-148 SOLN 1,000 ML IV SCH (07:00)
[2022-07-14] MEDS ORDERED: PHENYLEPHRINE HCL 10 MG/1 ML SINGLE DOSE VIAL ONE (07:56)
[2022-07-14] MEDS ORDERED: ONDANSETRON 4 MG/2 ML VIAL ONE (07:56)
[2022-07-14] MEDS ORDERED: ceFAZolin SODIUM 1 GM VIAL ONE (07:56)
[2022-07-14] MEDS ORDERED: OXYTOCIN 10 UNITS/ML VIAL ONE (07:56)
[2022-07-14] MEDS ORDERED: morphine SULFATE/PF 1 MG/2 ML (2cc Syringe - QUVA) ONE (07:56)
[2022-07-14] MEDS ORDERED: FENTANYL CITRATE/PF 50 MCG/ML VIAL ONE (07:57)
[2022-07-14] MEDS ORDERED: KETOROLAC TROMETHAMINE 30 MG/1 ML VIAL ONE (07:57)
[2022-07-14] MEDS ORDERED: ONDANSETRON 4 MG/2 ML VIAL IVPUSH PRN (10:40)
[2022-07-14] MEDS ORDERED: SENNOSIDES/DOCUSATE COMBO (SENNA PLUS) TABLET (UD) PO PRN (10:44)
[2022-07-14] MEDS ORDERED: oxyCODONE HCL 5 MG TABLET PO PRN (10:44)
[2022-07-14] MEDS ORDERED: ONDANSETRON 4 MG/2 ML VIAL IVPB PRN (10:44)
[2022-07-14] MEDS ORDERED: ACETAMINOPHEN 1000 MG/100 ML BAG IVPB PRN (10:44)
[2022-07-14] MEDS ORDERED: OXYTOCIN 20 UNITS in 0.9% NS 20 UNIT/1,000 ML INFUS.BAG IV SCH (10:45)
[2022-07-14] MEDS ORDERED: LACTATED RINGERS SOLUTION 1,000 ML IV SCH (10:45)
[2022-07-14] MEDS ORDERED: OXYTOCIN 20 UNITS in 0.9% NS 20 UNIT/1,000 ML INFUS.BAG IV ONE (12:13)
[2022-07-14] MEDS ORDERED: IBUPROFEN 800 MG/8 ML IJ IVPB ONE (12:18)
[2022-07-14] MEDS: IBUPROFEN 800 MG/8 ML IJ IVPB PRN ×2 (12:20→19:53)
[2022-07-15] MEDS: IBUPROFEN 600 MG TABLET (FP) PO PRN ×3 (06:12→20:08)
[2022-07-15] MEDS: SIMETHICONE 80 MG TAB.CHEW (FP) PO PRN ×3 (06:12→20:08)
[2022-07-15 07:45] LABS: BASO % 0.3 % (0-2.0); EOS % 0.7 % (0-4.5); HEMATOCRIT 25.1 % (32.4-45.2); HEMOGLOBIN 8.6 GM/dL (10.7-15.3); LYMPH % 6.7 % (8-40); MCH 26.7 pg (25.7-33.7); MCHC 34.3 g/dl (32.0-36.0); MEAN CELL VOLUME 77.7 fl (80-96); MEAN PLT VOLUME 6.9 fl (7.5-11.1); MONO % 9.5 % (3.8-10.2); NEUT % 82.8 % (42.8-82.8); PLATELET COUNT 267 10^3/uL (134-434); RBC 3.24 M/mm3 (3.60-5.2); RDW 14.9 % (11.6-15.6); WHITE BLOOD COUNT 10.1 K/mm3 (4.0-10.0)
[2022-07-15] MEDS ORDERED: DIPHTH,PERTUSS(ACELL),TET 0.5 ML DISP.SYRIN IM ONE (10:00)
[2022-07-15] MEDS ORDERED: BISACODYL 10 MG SUPP.RECT RC PRN (10:44)
[2022-07-15] MEDS: FERROUS SO4 325 MG TABLET (FP) PO SCH (11:24)
[2022-07-16] MEDS: IBUPROFEN 600 MG TABLET (FP) PO PRN (09:39)
[2022-07-16] MEDS: FERROUS SO4 325 MG TABLET (FP) PO SCH (09:39)
[2022-07-16] MEDS: SIMETHICONE 80 MG TAB.CHEW (FP) PO PRN ×2 (09:39→15:40)
[2022-07-16] MEDS: ACETAMINOPHEN 325 MG TABLET (FP) PO PRN ×2 (15:40→21:16)
[2022-07-16] MEDS ORDERED: DIPHENOXYLATE 2.5/ATROPINE.025 1 COMBO TABLET PO ONE (18:30)
[2022-07-17] MEDS: IBUPROFEN 600 MG TABLET (FP) PO PRN (06:17)
[2022-07-17 10:01] VITALS: BP 107/66; PULSE 98; RESP 17; TEMP 98.3
[2022-07-17 10:03] LABS: BASO % 0.3 % (0-2.0); EOS % 2.5 % (0-4.5); HEMATOCRIT 27.7 % (32.4-45.2); HEMOGLOBIN 9.5 GM/dL (10.7-15.3); LYMPH % 9.6 % (8-40); MCH 26.5 pg (25.7-33.7); MCHC 34.3 g/dl (32.0-36.0); MEAN CELL VOLUME 77.4 fl (80-96); MEAN PLT VOLUME 6.7 fl (7.5-11.1); MONO % 9.5 % (3.8-10.2); NEUT % 78.1 % (42.8-82.8); PLATELET COUNT 345 10^3/uL (134-434); RBC 3.58 M/mm3 (3.60-5.2); RDW 15.3 % (11.6-15.6); WHITE BLOOD COUNT 7.4 K/mm3 (4.0-10.0)
[2022-07-17] MEDS: FERROUS SO4 325 MG TABLET (FP) PO SCH (11:00)
== END 2022-07-17 11:35 | disposition home or self-care (01) | DRG 787 ==
LOC: JLDR 05:50 → J3W 12:30
PROVIDERS: ADMIT Specialist; ATTEND Specialist
PROC: 10D00Z1 Extraction of Products of Conception, Low, Open Approach (ICD-10-PCS; principal; 2022-07-14)
PROC: 0DNW0ZZ Release Peritoneum, Open Approach (ICD-10-PCS; 2022-07-14)
DX: O34.211 Maternal care for low transverse scar from previous cesarean delivery (principal); O44.23 Partial placenta previa NOS or without hemorrhage, third trimester; O36.5930 Maternal care for other known or suspected poor fetal growth, third trimester, not applicable or unspecified; N73.6 Female pelvic peritoneal adhesions (postinfective); Z3A.38 38 weeks gestation of pregnancy; Z37.0 Single live birth
CPT/HCPCS: 36415; 85025; 88304-TC; 88307-TC; 90715; 94010

== ENCOUNTER 2024-08-08 01:20 | Inpatient (IN) | payer OTHER ==
[2024-08-08] MEDS: ELECTROLYTE-148 SOLN 500 ML IV ONE (02:20)
[2024-08-08 02:27] VITALS: BMI 29.9
[2024-08-08 02:39] LABS: ABSOLUTE IMMATURE GRANULOCYTES 0.51 x10^3/uL (0.0-0.031); BASOPHILS # 0.03 x10^3/uL (0.01-0.08); EOSINOPHIL % 0.8 % (0.7-5.8); EOSINOPHILS # 0.09 x10^3/uL (0.04-0.36); HEMATOCRIT 31.7 % (34.1-44.9); HEMOGLOBIN 9.8 g/dL (11.2-15.7); MCHC 30.9 g/dl (32.2-35.5); MEAN CELL VOLUME 75.1 fl (79.4-94.8); MEAN PLT VOLUME 8.9 fl (9.4-12.3); MONOCYTE # 1.13 x10^3/uL (0.24-0.86); MONOCYTE % 9.5 % (4.7-12.5); PLATELET COUNT 299 x10^3/uL (182-369); RDW 15.9 % (12.1-16.5)
[2024-08-08] MEDS: CITRIC ACID/SODIUM CITRATE 30 ML UNIT-DOSE CUP PO ONE (02:40)
[2024-08-08] MEDS: ELECTROLYTE-148 SOLN 1,000 ML IV SCH (02:48)
[2024-08-08 02:49] LABS: INR 0.96 (0.83-1.09); PROTHROMBIN TIME (PATIENT) 10.5 SEC (9.7-13.0)
[2024-08-08 02:52] LABS: ACTIVATED PTT 23.7 SECONDS (25.2-36.5)
[2024-08-08] MEDS ORDERED: ONDANSETRON 4 MG/2 ML VIAL IVPUSH PRN (02:56)
[2024-08-08] MEDS ORDERED: IBUPROFEN 600 MG TABLET (FP) PO PRN (02:56)
[2024-08-08 03:01] LABS: POTASSIUM 3.5 mmol/L (3.5-5.1)
[2024-08-08 03:03] LABS: BLOOD UREA NITROGEN 7.2 mg/dL (7-18); CALCIUM 9.5 mg/dL (8.5-10.1)
[2024-08-08] MEDS ORDERED: ceFAZolin SODIUM 1 GM VIAL ONE (03:03)
[2024-08-08] MEDS ORDERED: FENTANYL CITRATE/PF 50 MCG/ML VIAL ONE (03:03)
[2024-08-08] MEDS ORDERED: morphine SULFATE/PF 1 MG/2 ML (2cc Syringe - QUVA) ONE (03:03)
[2024-08-08] MEDS ORDERED: DEXAMETHASONE SOD PHOSPHATE 4 MG/1 ML VIAL ONE (03:04)
[2024-08-08] MEDS ORDERED: KETOROLAC TROMETHAMINE 30 MG/1 ML VIAL ONE (03:04)
[2024-08-08] MEDS ORDERED: OXYTOCIN 10 UNITS/ML VIAL ONE (03:04)
[2024-08-08 03:06] LABS: CREATININE 0.6 mg/dL (0.55-1.3)
[2024-08-08] MEDS: OXYTOCIN 20 UNITS in 0.9% NS 20 UNIT/1,000 ML INFUS.BAG IV SCH (03:50)
[2024-08-08 03:59] LABS: HIV INTERPRETATION NEGATIVE (NEGATIVE)
[2024-08-08] MEDS ORDERED: OXYTOCIN 20 UNITS in 0.9% NS 20 UNIT/1,000 ML INFUS.BAG IV ONE (04:04)
[2024-08-08] MEDS ORDERED: SENNOSIDES/DOCUSATE COMBO (SENNA PLUS) TABLET (UD) PO PRN (04:49)
[2024-08-08] MEDS ORDERED: ACETAMINOPHEN 325 MG TABLET (FP) PO PRN (04:49)
[2024-08-08] MEDS ORDERED: IBUPROFEN 800 MG/8 ML IJ IVPB PRN (04:49)
[2024-08-08] MEDS ORDERED: METHYLERGONOVINE MALEATE 0.2 MG/1 ML AMP IM PRN (04:49)
[2024-08-08] MEDS ORDERED: ACETAMINOPHEN 1000 MG/100 ML BAG IVPB PRN (04:51)
[2024-08-08] MEDS: FERROUS SO4 325 MG TABLET (FP) PO SCH (09:31)
[2024-08-08] MEDS: PRENATAL VITAMINS W/ FOLIC ACID TABLET (FP) PO SCH (09:31)
[2024-08-08] MEDS ORDERED: oxyCODONE HCL 5 MG TABLET PO PRN ×2 (16:49)
[2024-08-09] MEDS: IBUPROFEN 600 MG TABLET (FP) PO PRN (00:49)
[2024-08-09] MEDS: SIMETHICONE 80 MG TAB.CHEW (FP) PO PRN (00:49)
[2024-08-09] MEDS ORDERED: BISACODYL 10 MG SUPP.RECT RC PRN (04:49)
[2024-08-09 07:23] LABS: ABSOLUTE IMMATURE GRANULOCYTES 0.09 x10^3/uL (0.0-0.031); BASOPHILS # 0.01 x10^3/uL (0.01-0.08); EOSINOPHIL % 0.6 % (0.7-5.8); EOSINOPHILS # 0.06 x10^3/uL (0.04-0.36); HEMATOCRIT 26.8 % (34.1-44.9); HEMOGLOBIN 8.2 g/dL (11.2-15.7); MCHC 30.6 g/dl (32.2-35.5); MEAN CELL VOLUME 75.9 fl (79.4-94.8); MEAN PLT VOLUME 9.1 fl (9.4-12.3); MONOCYTE # 1.14 x10^3/uL (0.24-0.86); MONOCYTE % 11.9 % (4.7-12.5); PLATELET COUNT 221 x10^3/uL (182-369); RDW 15.9 % (12.1-16.5)
[2024-08-09] MEDS: ACETAMINOPHEN 325 MG TABLET (FP) PO PRN (18:27)
[2024-08-11 10:32] VITALS: BP 116/73; PULSE 94; RESP 16; TEMP 98.1
== END 2024-08-11 12:40 | disposition home or self-care (01) | DRG 540 ==
LOC: JDEL 01:20 → JLDR 02:00 → J3W 07:52
PROVIDERS: ADMIT Obstetrics & Gynecology; ATTEND Obstetrics & Gynecology
PROC: 10D00Z1 Extraction of Products of Conception, Low, Open Approach (ICD-10-PCS; principal; 2024-08-08)
DX: O44.43 Low lying placenta NOS or without hemorrhage, third trimester (principal); O34.211 Maternal care for low transverse scar from previous cesarean delivery; Z3A.38 38 weeks gestation of pregnancy; Z37.0 Single live birth
CPT/HCPCS: 36415; 59409; 80048; 85025; 85610; 85730; 86780; 86850; 86900; 86901; 87389; 88307-TC; 94010